=== PATIENT | male | born 1975 | race Caucasian/White ===

== ENCOUNTER 2022-12-08 12:52 | Emergency (ER) | payer OTHER, SELFPAY ==
[2022-12-08 13:02] VITALS: BP 167/107; PULSE 120; RESP 17; TEMP 36.8; O2SAT 99; BMI 38.6
--- NOTE | 2022-12-08 13:03 | CT_ITS ---
FINAL REPORT TECHNIQUE: Thin section axial images were obtained through the face without contrast. Coronal reconstruction images are obtained from the axial data. CLINICAL HISTORY: facial trauma, dental pain. pain on left side of face FINDINGS: There is no acute facial bone fracture. The orbital rims are intact. There is mucoperiosteal thickening in the left greater than right maxillary sinuses, right greater than left sphenoid sinuses, bilateral ethmoid and left frontal sinuses. The bilateral maxillary infundibula are occluded. There is leftward nasal septal deviation. There is a periapical lucency surrounding a left anterior incisor. There are several dental caries. There is soft tissue edema along the left chin. IMPRESSION: No acute facial fracture. Pansinusitis. Soft tissue edema of the left hand. Dental disease. Reviewed, Interpreted and Dictated by Marissa Miller MD Transcribed by Simón Appiah Authenticated and [facility]
--- NOTE | 2022-12-08 13:34 | [facility].EDGENADL ---
Discharge Plan Disposition Patient Disposition: Home, Self-Care Condition: Good Prescriptions Prescriptions: New chlorhexidine gluconate [Peridex] 0.12 % mouthwash 15 ml buccal BID Qty: 1500 0RF amoxicillin-pot clavulanate 875-125 mg tablet 1 tab PO BID Qty: 20 0RF naproxen 500 mg tablet 500 mg PO Q8H PRN (Reason: pain) Qty: 20 0RF Referrals Follow up/Referrals: Jan Sena [Referring] - See instructions Provider,Referral, [Primary Care Provider] - See instructions Activity Restrictions/Add. Instructions Additional Instructions/Restrictions: You were evaluated in the emergency department today. You have injured multiple teeth and have lacerations to your face as well as an abrasion to your chin. These lacerations were repaired with absorbable sutures. They will absorb over the next 7 to 10 days. Please keep the areas clean and dry. Use Peridex mouthwash to prevent oral infection. 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 You may also take Tylenol for pain. Follow-up outpatient with dentistry. We recommend calling or your dentist. Eat a soft diet to avoid loosening teeth. Return to the emergency department for any new or worsening symptoms. Clinical Impressions Clinical Impression: Fracture of multiple teeth Laceration of lower lip Qualifiers: Encounter type: initial encounter Qualified Code(s): S01.511A - Laceration without foreign body of lip, initial encounter Abrasion of chin Qualifiers: Encounter type: initial encounter Qualified Code(s): S00.81XA - Abrasion of other part of head, initial encounter Instructions Patient Instructions: Soft Diet, DI for Laceration Repair, DI for Impacted Tooth, DI for Fractured Tooth Discharge ED Provider: Teresa Phelps General Adult HPI General Chief complaint: Wound/Laceration Stated complaint: facial and dental injury Time Seen by Provider: 12/08/22 13:02 Mode of Arrival: EMS Source of Information: Patient Limitations: No Limitations Description of Symptoms (Recalled from ER Triage Doc. by RN): Pt reports working on a garage door and spring broke off hitting him in face, lips, teeth, jaw, chin; denies LOC History of Present Illness HPI narrative: This patient is a 47-year-old male who reports a history of hypertension presented to the emergency department for evaluation of a facial injury that occurred while working on a garage door. It hit him in the chin/teeth. He felt immediate pain. No loss of consciousness noted. He is not on any blood thinners. He states that it feels like his upper teeth were jammed up into his gums and he suffered a laceration to his lower lip and chin. He is unsure when his last tetanus shot was. No other concerns noted at this time. Related Data Previous Rx's Medication Instructions Recorded amoxicillin 875 mg-potassium 1 tab PO BID #20 tabs 12/08/22 clavulanate 125 mg tablet chlorhexidine gluconate 0.12 % 15 ml buccal BID #1,500 mL 12/08/22 mouthwash (Peridex) naproxen 500 mg tablet 500 mg PO Q8H PRN pain #20 tabs 12/08/22 Allergies Allergy/AdvReac Type Severity Reaction Status Date / Time No Known Allergies Allergy Verified 12/08/22 13:17 [facility] Disclaimer: The information contained in this section may have been updated after the patient was seen, as this information can be updated by other users. Social History Smoking Status: Current every day smoker alcohol intake: never current occupational status: employed Travel in the last 8 weeks: None ROS Obtained: Yes All systems reviewed & no additional complaints except as documented 14 point review of systems obtained and negative except as mentioned in HPI. Physical Exam General General appearance: alert and in no apparent distress Head Head exam: other (Laceration 4 cm laceration to the left lower chin. 1 cm throug
[2022-12-08 15:44] VITALS: BP 160/107; PULSE 110; RESP 15; TEMP 36.7; O2SAT 93
== END 2022-12-08 15:47 | disposition home or self-care (01) ==
PROVIDERS: Emergency Provider Emergency Medicine
DX: S01.511A Laceration without foreign body of lip, initial encounter (principal); S01.81XA Laceration without foreign body of other part of head, initial encounter; S02.5XXA Fracture of tooth (traumatic), initial encounter for closed fracture; W22.8XXA Striking against or struck by other objects, initial encounter; I10 Essential (primary) hypertension; F17.210 Nicotine dependence, cigarettes, uncomplicated; Z23 Encounter for immunization
CPT/HCPCS: 12011; 70486; 90471; 90715; 99284